=== PATIENT | male | born 1945 | race Hispanic/Latino ===

== ENCOUNTER 2019-01-04 14:18 | Emergency (ER) | payer MEDICARE ==
[2019-01-04] MEDS ORDERED: Ketorolac Tromethamine 30 MG/ML VIAL ONE (15:15)
[2019-01-04] MEDS ORDERED: Ketorolac Tromethamine 30 MG/ML VIAL IM SCH (15:15)
--- NOTE | 2019-01-04 16:02 | RAD ---
LEFT RIBS AND PA CHEST: Date: 01/04/19 HISTORY: Fall. COMPARISON: Radiograph from 2010. FINDINGS: Lungs are clear. No pneumothorax. No effusion. Cardiac silhouette and mediastinal contours within nor mal limits. Practically nondisplaced left lateral acute 6th rib fracture with very small adjacent subpleural germaine obey. IMPRESSION: Minimally displaced left lateral 6th rib fracture with very small adjacent subpleural hematoma. No p neumothorax. POS: HOME
[2019-01-04] MEDS ORDERED: HYDROcodone/Acetaminophen 5/325 mg Tablet ONE (16:47)
== END 2019-01-04 16:51 | disposition home or self-care (01) ==
LOC: ERS 14:18
DX: S22.32XA Fracture of one rib, left side, initial encounter for closed fracture (principal); F17.210 Nicotine dependence, cigarettes, uncomplicated; W10.9XXA Fall (on) (from) unspecified stairs and steps, initial encounter
CPT/HCPCS: 96372; J1885

== ENCOUNTER 2021-11-09 16:50 | Outpatient (CLI) | payer MEDICARE ==
[2021-11-10 00:04] LABS: SARS-CoV-2 PCR by NAA Not Detected (NotDetected)
== END 2021-11-09 16:51 | disposition home or self-care (01) ==
LOC: LABBT 16:50
PROVIDERS: ATTEND Family Medicine
DX: H43.392 Other vitreous opacities, left eye (principal); H54.7 Unspecified visual loss; Z20.822 Contact with and (suspected) exposure to COVID-19
CPT/HCPCS: U0003; U0005

== ENCOUNTER 2021-11-10 10:29 | Day surgery (SDC) | payer MEDICARE ==
[2021-11-09 14:40] VITALS: BMI 23.3
[~2021-11-10 10:29] MED LIST: Amphotericin B(Fungizone) 0.75 MG in Sterile Water 10 ML IVPB SCH; EPINEPHrine 0.3 MG in Ophthalmic Irrigation Solution 500 ML IRR SCH; Vancomycin HCl 100 MG, Sodium Chloride 0.9% 10 ML TOP SCH
[2021-11-10] MEDS ORDERED: fentaNYL Citrate/PF 100 MCG/2 ML SYRINGE ONE (11:09)
[2021-11-10] MEDS ORDERED: Famotidine/PF 20 mg/2ml Vial ONE (11:09)
[2021-11-10] MEDS ORDERED: Phenylephrine 2.5% Ophth Soln 5 ML BOT ONE (12:15)
[2021-11-10] MEDS ORDERED: Cyclopentolate 1% Opth Drop 2 ML BOT ONE (12:15)
[2021-11-10] MEDS ORDERED: Metoclopramide HCl 10 MG/2 ML VIAL ONE (12:28)
[2021-11-10] MEDS ORDERED: Ondansetron PF 4 MG/2 ML Vial ONE (12:28)
[2021-11-10] MEDS ORDERED: Maxitrol 0.1% Opth Oint 3.5 GM TUBE ONE (12:28)
[2021-11-10] MEDS ORDERED: PROPOFOL 200 MG/20 ML VIAL ONE (12:28)
[2021-11-10] MEDS ORDERED: Lidocaine 1% PF 5 ML VIAL ONE (12:28)
[2021-11-10] MEDS ORDERED: HYDROcodone/Acetaminophen 5/325 mg Tablet ONE (14:48)
[2021-11-12 13:15] LABS: Fungus Stain Final report (.)
== END 2021-11-10 16:08 | disposition home or self-care (01) ==
LOC: SDC 10:29
PROVIDERS: ATTEND Ophthalmology Retina Specialist
PROC: 08T53ZZ Resection of Left Vitreous, Percutaneous Approach (ICD-10-PCS; principal; 2021-11-10)
DX: H44.002 Unspecified purulent endophthalmitis, left eye (principal); H43.392 Other vitreous opacities, left eye
CPT/HCPCS: 36416; 87070; 87102; 87205; 87206; J0171; J0713; J2405; J2704; J2765; J3370; S0028

== ENCOUNTER 2023-04-02 13:22 | Emergency (ER) | payer OTHER, MEDICARE ==
[2023-04-02] MEDS ORDERED: Ketorolac Tromethamine 30 MG/ML VIAL ONE (14:11)
[2023-04-02] MEDS ORDERED: Morphine 4 MG/ML VIAL ONE (14:11)
== END 2023-04-02 16:00 | disposition home or self-care (01) ==
LOC: ERS 13:22
DX: S06.0X0A Concussion without loss of consciousness, initial encounter (principal); S80.01XA Contusion of right knee, initial encounter; E11.9 Type 2 diabetes mellitus without complications; E78.00 Pure hypercholesterolemia, unspecified; F17.210 Nicotine dependence, cigarettes, uncomplicated; V89.2XXA Person injured in unspecified motor-vehicle accident, traffic, initial encounter
CPT/HCPCS: 70450; 71045; 72125; 96372; J1885; J2270